=== PATIENT | male | born 1985 | race Caucasian/White ===

== ENCOUNTER 2023-05-29 08:00 | Outpatient (CLI) | payer BC, SELFPAY | END 2023-05-29 08:01 | disposition home or self-care (01) | LOC: NFLDREF 06-01 07:42 | PROVIDERS: PCP Family Medicine; Referring Provider Family Medicine; Visit Provider Family Medicine | DX: Z13.220 Encounter for screening for lipoid disorders (principal); Z13.1 Encounter for screening for diabetes mellitus | CPT/HCPCS: 80061; 82947 ==

== ENCOUNTER 2024-07-22 07:21 | Outpatient (CLI) | payer BC, SELFPAY | END 2024-07-22 07:22 | disposition home or self-care (01) | LOC: NFLDREF 08-01 00:12 | PROVIDERS: PCP Family Medicine; Referring Provider Family Medicine; Visit Provider Family Medicine | DX: E78.5 Hyperlipidemia, unspecified (principal); Z13.1 Encounter for screening for diabetes mellitus | CPT/HCPCS: 80061; 82947 ==